=== PATIENT | male | born 1970 | race African-American/Black ===

== ENCOUNTER 2020-05-28 22:02 | Emergency (ER) | payer OTHER ==
[2020-05-28] MEDS ORDERED: IBUPROFEN 400 MG TABLET (FP) PO ONE ×2 (22:16→22:40)
[2020-05-28 22:19] VITALS: BP 190/128; PULSE 94; TEMP 99; BMI 27.3
== END 2020-05-28 23:51 | disposition home or self-care (01) ==
LOC: FER 22:02
DX: S93.402A Sprain of unspecified ligament of left ankle, initial encounter (principal)
CPT/HCPCS: 73610-TC-LT-FY; 73630-TC-LT; 99284-25